=== PATIENT | male | born 1970 | race Caucasian/White ===

== ENCOUNTER 2017-03-26 08:28 | Emergency (ER) | payer BC ==
[2017-03-26 09:07] LABS: #Basophils 0.1 thou/uL (0.0-0.2); #Eosinphils 0.2 thou/uL (0.0-0.7); #Lymphocytes 1.8 thou/uL (1.20-3.40); #Monocytes 0.4 thou/uL (0.11-0.59); #Neutrophils 2.9 thou/uL (1.40-6.50); %Basophils 1.4 % (0.0-1.0); %Eosinophils 4.4 % (0.0-10.0); %Lymphocytes 32.7 % (21.0-51.0); %Monocytes 7.7 % (0.0-10.0); %Neutrophils 53.9 % (42.0-75.0); Hemoglobin 14.4 g/dL (14.0-18.0); Mean Corpuscular HGB CONC 33.2 g/dL (32.0-36.0); Mean Corpuscular Hemoglobin 30.2 pg (27.0-31.0); Mean Corpuscular Volume 90.8 fl (80.0-94.0); Mean Platelet Volume 7.9 fL (7.4-10.4); Platelet Count 232 thou/uL (130-400); RBC Distribution Width 12.2 % (11.5-14.5); Red Blood Cell (RBC) Count 4.78 mill/uL (4.70-6.10); White Blood Cell (WBC) Count 5.4 thou/uL (4.8-10.8)
[2017-03-26 09:12] LABS: Bilirubin Negative (Negative); Blood, Urine Moderate (Negative); Glucose, Urine (Dipstick) Negative (Negative); Leukocyte Negative (Negative); Nitrite Negative (Negative); Protein, Urine (Dipstick) Negative (Neg-Trace); Urobilinogen 0.2 mg/dL (0.2-1.0)
[2017-03-26] MEDS ORDERED: Ondansetron HCl/PF 4 MG/2 ML Vial ONE (09:12)
[2017-03-26] MEDS ORDERED: Metoclopramide HCl 10 MG/2 ML VIAL ONE (09:12)
[2017-03-26] MEDS ORDERED: Ketorolac Tromethamine 30 MG/ML VIAL ONE (09:12)
[2017-03-26 09:17] LABS: Bacteria/HPF Rare-Few HPF (None Seen); Clarity Hazy (Clear); RBC/HPF 21-50 HPF (0-3); WBC/HPF 0-3 HPF (0-3)
[2017-03-26 09:21] LABS: ALT (SGPT) 20 U/L (8-55); AST (SGOT) 12 U/L (5-34); Albumin 3.8 g/dL (3.5-5.0); Alkaline Phosphatase 72 U/L (40-150); Anion Gap 13 mmol/L (10-20); BUN (Urea Nitrogen) 13 mg/dL (8.9-20.6); Bilirubin, Total 0.4 mg/dL (0.2-1.2); CK (CPK) 45 U/L (30-200); Calcium 9.2 mg/dL (7.8-10.44); Carbon Dioxide 24 mmol/L (22-29); Chloride 107 mmol/L (98-107); Globulin 2.6 g/dL (2.4-3.5); Glucose 103 mg/dL (70-105); Lipase 20 U/L (8-78); Potassium 4.3 mmol/L (3.5-5.1); Protein, Total 6.4 g/dL (6.0-8.3); Sodium 140 mmol/L (136-145)
[2017-03-26 09:30] LABS: Calc. Creatinine Clearance 0 mL/min (70-130); Estimated GFR-MDRD 75
--- NOTE | 2017-03-26 10:10 | RAD ---
FRONTAL VIEW CHEST: COMPARISON: No prior comparisons. INDICATION: Left abdominal pain. FINDINGS: There is no evidence of free air beneath the hemidiaphragms. The cardiac silhouette is accentuated by portable technique. There is no consolidation, effusion, or discrete pneumothorax. IMPRESSION: No focal consolidation. POS: [facility]
--- NOTE | 2017-03-26 10:16 | CT ---
CT ABDOMEN AND PELVIS NONCONTRAST: COMPARISON: None. INDICATION: Abdominal pain. COMPARISON: No prior comparison. Renal calculus protocol requested by ordering physician. FINDINGS: No consolidation of the imaged lung bases. There is punctate nonobstructing right nephrolithiasis. Solid abdominal viscera and bowel, lymph nodes, and vasculature are limited in assessment without t he presence of IV or enteric contrast. There is colonic diverticulosis. No free air or ascites. T here is a fat-containing left inguinal hernia. The urinary bladder is under distended with associat ed wall prominence. Mild vascular calcification present. There is osseous degenerative change. IMPRESSION: 1. Nonobstructing right nephrolithiasis. 2. Mild wall prominence of the urinary bladder which may be on the basis of under distention. [facility] elate clinically. 3. Additional details as described above. POS: [facility]
[2017-03-26] MEDS ORDERED: HYDROcodone/Acetaminophen 10/325 mg Tablet ONE (11:16)
[2017-03-26] MEDS ORDERED: Hyoscyamine Sulfate SL 0.125 mg Tablet ONE ×2 (11:17→11:24)
== END 2017-03-26 11:20 | disposition home or self-care (01) ==
LOC: MADERS 08:28
DX: N20.2 Calculus of kidney with calculus of ureter (principal); Z87.891 Personal history of nicotine dependence
CPT/HCPCS: 71010; 74176; 80053; 81001; 82150; 82550; 83690; 85025; 87086; 96374; 96375; J1885; J2405; J2765